=== PATIENT | male | born 1975 | race Caucasian/White ===

== ENCOUNTER 2018-05-21 18:36 | Emergency (ER) | payer SELFPAY ==
[2018-05-21 18:49] VITALS: BMI 28.0
--- NOTE | 2018-05-21 18:59 | PDOC ---
History of Present Illness - General Chief Complaint: Pain Stated Complaint: SWELLING AND PAIN TO PENILE History Source: Patient Exam Limitations: No Limitations Past History - Past Medical History Allergies/Adverse Reactions: Allergies Allergy/AdvReac Type Severity Reaction Status Date / Time Penicillins Allergy Verified 05/21/18 18:45 Home Medications: Ambulatory Orders Doxycycline Hyclate [Vibramycin] 100 mg PO BID #14 capsule 05/21/18 Levofloxacin [Levaquin] 500 mg PO DAILY #7 tablet 05/21/18 COPD: No Diabetes: Yes - Surgical History Cholecystectomy: Yes - Suicide/Smoking/Psychosocial Hx Smoking History: Never smoked *Physical Exam - Vital Signs Last Vital Signs Temp Pulse Resp BP Pulse Ox 98.3 F 76 17 129/79 96 05/21/18 18:45 05/21/18 18:45 05/21/18 18:45 05/21/18 18:45 05/21/18 18:45 Moderate Sedation - Procedure Monitoring Vital Signs: Procedure Monitoring Vital Signs Temperature 98.3 F 05/21/18 18:45 Pulse Rate 76 05/21/18 18:45 Respiratory Rate 17 05/21/18 18:45 Blood Pressure 129/79 05/21/18 18:45 O2 Sat by Pulse Oximetry (%) 96 05/21/18 18:45 *DC/Admit/Observation/Transfer Diagnosis at time of Disposition: Urethritis - Discharge Dispostion Disposition: HOME Decision to Admit order: No - Prescriptions Prescriptions: Doxycycline Hyclate [Vibramycin] 100 mg PO BID #14 capsule Levofloxacin [Levaquin] 500 mg PO DAILY #7 tablet - Referrals Referrals: [facility] [place] [facility] [place] [Provider Group] - Patient Instructions Printed Discharge Instructions: How to Detect and Treat STDs Additional Instructions: you were evaluated in the emergency department for penile infection. based on physical exam, it appears that you have an STD. please continue taking your acyclovir as prescribed. you received gentamicin in the ED and have antibiotics prescribed to you at your pharmacy. please take as directed. please follow up with your primary medical doctor or the one we refer you to within 72 hours after discharge. please return to the emergency department if you have worsening symptoms or new concerning symptoms such as inability to pee, fever/ chills, and lower abdominal pain and testicular pain. thank you - Post Discharge Activity
--- NOTE | 2018-05-21 19:22 | PDOC ---
Attending Attestation - HPI HPI: 05/21/18 20:15 The patient is a 42 year old male, with a significant PMH of diabetes mellitus, liver disease, and gallbladder disease, who presents to the emergency department with 1 year of intermittent swelling and pain to foreskin. The patient states the pain, swelling and dry skin of the penis last for approx 1 week at a time and then resolves on its own for 1-2 months before returning. The patient states todays episode is the most dry and painful that it has been. The patient reports receiving a cream in the past with mild relief but is unsure the name of the cream. The patient also endorses dysuria and frequency. The patient endorses having multiple sexual partners. 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 The patient states he exercises by riding his bicycle where he sweats a lot. The patient denies any recent injuries or trauma. The patient denies chest pain, shortness of breath, headache and dizziness. Denies fever, chills, nausea, vomit, diarrhea and constipation. Allergies: Penicillins Documentation prepared by Tan Ricci, acting as medical support specialist for Tess Hale MD. - Physicial Exam PE: 05/21/18 20:57 GENERAL: Awake, alert, and fully oriented, in no acute distress HEAD: No signs of trauma EYES: PERRLA, EOMI, sclera anicteric, conjunctiva clear ENT: Auricles normal inspection, hearing grossly normal, nares patent, oropharynx clear without exudates. Moist mucosa NECK: Normal ROM, supple, no lymphadenopathy, JVD, or masses LUNGS: Breath sounds equal, clear to auscultation bilaterally. No wheezes, and no crackles HEART: Regular rate and rhythm, normal S1 and S2, no murmurs, rubs or gallops ABDOMEN: Soft, nontender, normoactive bowel sounds. No guarding, no rebound. No masses GENITAL: (+) Unable to retract foreskin secondary to edema. (+) Multiple hepatic -like lesions on the internal aspect of the foreskin. (+) White discharge noted inside foreskin. EXTREMITIES: Normal range of motion, no edema. No clubbing or cyanosis. No cords, erythema, or tenderness NEUROLOGICAL: Cranial nerves II through XII grossly intact. Normal speech, normal gait SKIN: Warm, Dry, normal turgor, no rashes or lesions noted. <Tan Ricci - Last Filed: 05/21/18 20:57> - Resident Resident Name: Judah Castro - ED Attending Attestation I have performed the following: I have examined & evaluated the patient, The case was reviewed & discussed with the resident, I agree w/resident's findings & plan - Medical Decision Making 05/21/18 21:08 Pt admits that he has been having sex with multiple partners. Pt states that he has PCN allergy. We sent GC/chlamydia panel. We will treat for chlamydia, but not GC with 3rd gen cephalosporin. He is currently being treated for herpes with acyclovir that was prescribed a couple days back at [facility]. We also sent off a VDRL/syphilis, and a wound culture of his penis. 05/22/18 04:45 Pt admits to multiple sex partners when his left the room. We will treat for GC and he is getting herpes treatment. 05/22/18 04:45 Pt has UTI and he was treated for UTI also <Tess Hale - Last Filed: 05/22/18 04:46>
[2018-05-21 20:27] LABS: URINE APPEARANCE SLCLOUDY; URINE BILIRUBIN NEGATIVE (<2.0 mg/dL); URINE COLOR LTYELLOW; URINE GLUCOSE (UA) 3+ (NEGATIVE); URINE KETONE NEGATIVE (NEGATIVE); URINE LEUK ESTERASE 3+ (NEGATIVE); URINE NITRITE NEGATIVE (NEGATIVE); URINE PROTEIN NEGATIVE (NEGATIVE); URINE UROBILINOGEN NEGATIVE mg/dL (0.2-1.0)
[2018-05-21 20:31] LABS: EPI CELLS RARE /HPF (FEW)
[2018-05-21] MEDS ORDERED: DOXYCYCLINE HYCLATE 100 MG CAPSULE PO ONE ×2 (21:07→21:53)
[2018-05-21] MEDS ORDERED: GENTAMICIN INJECTION 240 MG in DEXTROSE 5%-WATER - 250 ML IM ONE (21:43)
[2018-05-21] MEDS ORDERED: GENTAMICIN INJECTION 240 MG in DEXTROSE 5%-WATER - 250 ML IM SCH (21:45)
[2018-05-21] MEDS ORDERED: GENTAMICIN SO4 80 MG/2 ML VIAL ONE (21:54)
[2018-05-21] MEDS ORDERED: GENTAMICIN SO4 80 MG/2 ML VIAL IM ONE (22:00)
[2018-05-21 22:11] VITALS: BP 139/88; PULSE 61; TEMP 98
== END 2018-05-21 22:40 | disposition home or self-care (01) ==
LOC: JER 18:36
DX: N34.2 Other urethritis (principal); E11.9 Type 2 diabetes mellitus without complications
CPT/HCPCS: 36415; 81003; 81015; 86593; 87070; 87086; 87186; 87205; 87491; 87591; 99282-25

== ENCOUNTER 2022-06-22 01:14 | Emergency (ER) | payer SELFPAY ==
[2022-06-22 01:33] VITALS: BP 128/92; PULSE 115; RESP 20; TEMP 98.2; BMI 27.0
[2022-06-22] MEDS ORDERED: LIDOCAINE 2%/EPINEPHRINE 1:100000 (50 ML MD VIAL) INF ONE (02:10)
[2022-06-22] MEDS ORDERED: DIPHTH,PERTUSS(ACELL),TET 0.5 ML DISP.SYRIN IM ONE ×2 (02:29→03:06)
[2022-06-22] MEDS ORDERED: CLINDAMYCIN HCL 300 MG CAPSULE PO ONE (04:36)
[2022-06-22] MEDS ORDERED: CLINDAMYCIN HCL 150 MG CAPSULE (FP) ONE (04:37)
[2022-06-22] MEDS ORDERED: ACETAMINOPHEN 325 MG TABLET (FP) PO ONE (04:37)
[2022-06-22] MEDS ORDERED: ACETAMINOPHEN 325 MG TABLET (FP) ONE (04:38)
== END 2022-06-22 04:43 | disposition home or self-care (01) ==
LOC: JER 01:14
PROC: 0HQ0XZZ Repair Scalp Skin, External Approach (ICD-10-PCS; principal; 2022-06-22)
PROC: 3E0234Z Introduction of Serum, Toxoid and Vaccine into Muscle, Percutaneous Approach (ICD-10-PCS; 2022-06-22)
DX: S01.01XA Laceration without foreign body of scalp, initial encounter (principal); W01.0XXA Fall on same level from slipping, tripping and stumbling without subsequent striking against object, initial encounter
CPT/HCPCS: 70450-TC; 72125-TC; 90715; 99284-25